=== PATIENT | male | born 1945 | race Caucasian/White ===

== ENCOUNTER 2023-05-21 05:25 | Inpatient (IN) | payer OTHER ==
[2023-05-15 15:00] LABS: BASOPHILS # (AUTO) 0.1 X10'3 (0-0.2); BASOPHILS % (AUTO) 0.7 % (0-1); EOSINOPHILS # (AUTO) 0.5 X10'3 (0-0.9); EOSINOPHILS % (AUTO) 4.3 % (0-6); HEMATOCRIT 45.9 % (42.0-52.0); HEMOGLOBIN 15.5 g/dl (14.0-17.9); LYMPHOCYTES # (AUTO) 4.1 X10'3 (1.1-4.8); LYMPHOCYTES % (AUTO) 37.4 % (21-51); MEAN CORPUSCULAR HEMOGLOBIN 31.1 PG (27.0-31.0); MEAN CORPUSCULAR HGB CONC 33.8 g/dL (33.0-36.5); MEAN CORPUSCULAR VOLUME 92.2 FL (78-98); MEAN PLATELET VOLUME 7.6 FL (7.4-10.4); MONOCYTES # (AUTO) 1.5 X10'3 (0-0.9); MONOCYTES % (AUTO) 13.9 % (2-12); NEUTROPHILS # (AUTO) 4.8 X10'3 (1.8-7.7); NEUTROPHILS % (AUTO) 43.7 % (42-75); PLATELET COUNT 306 X10'3 (140-440); RED BLOOD COUNT 4.98 X10'6 (4.70-6.10); RED CELL DISTRIBUTION WIDTH 14.5 % (11.5-14.5)
[2023-05-15 15:11] LABS: HEMOGLOBIN A1C 6.8 % (4.5-6.2)
[2023-05-15 15:16] LABS: ALANINE AMINOTRANSFERASE 35 U/L (12-78); ALBUMIN 3.9 G/DL (3.4-5.0); ALBUMIN/GLOBULIN RATIO 0.9 (1.1-1.5); ALKALINE PHOSPHATASE 67 IU/L (46-116); ANION GAP 10 (8-16); ASPARTATE AMINO TRANSFERASE 27 U/L (10-37); BILIRUBIN,TOTAL 0.6 MG/DL (0.1-1.0); BLOOD UREA NITROGEN 18 MG/DL (7-18); BUN/CREATININE RATIO 20.9 (10.0-20.0); CALCIUM 9.5 MG/DL (8.5-10.1); CHLORIDE 101 MMOL/L (99-107); CREATININE 0.86 MG/DL (0.60-1.10); GLUCOSE 126 MG/DL (70-104); POTASSIUM 3.9 MMOL/L (3.5-5.1); SODIUM 137 MMOL/L (135-145); TOTAL CARBON DIOXIDE 26.2 MMOL/L (24-32); TOTAL PROTEIN 8.1 G/DL (6.4-8.2); eGFR 86 ML/MIN
[~2023-05-21] VITALS: Ht 175.3 cm; Wt 122.7 kg
[2023-05-21] VITALS (23 sets, daily range): BP systolic 107–158; BP diastolic 64–95; PULSE 62–83; RESP 14–24; TEMP 97.3–98.5; O2SAT 92–99
[~2023-05-21 05:25] MED LIST: ALOG12.52 PO; ASPI-1265 PO; CARCD120C PO; CARV6.253 PO; CELE-193 PO; CHOL20002 PO; CYAN-104 PO; HYDR25TA5 PO; LOSA100T58 PO; METF-900 PO; OMEG-79 PO; OMEP-84 PO; ROSU40TA PO; VITC500T PO; ZINC220T3 PO
[2023-05-21] MEDS ORDERED: vancomycin 1,500 MG in NS 300ml IV soln IV ONE (05:30)
[2023-05-21] MEDS ORDERED: DOCUMENT DATE & TIME OF BETA-BLOCKER PO ONE (05:30)
[2023-05-21] MEDS ORDERED: tranexamic acid inj. 1,000 MG in normal saline IV soln 100ML IV ONE (05:30)
[2023-05-21] MEDS ORDERED: ceFAZolin inj. 3,000 MG in normal saline 100ml IV soln 100 ML IV ONE (05:30)
[2023-05-21] MEDS ORDERED: ringers solution, lacted 1,000 ML IV SCH ×2 (05:30→07:35)
[2023-05-21] MEDS ORDERED: famotidine 20mg tablet PO ONE (05:30)
[2023-05-21] MEDS ORDERED: epiNEPHrine 1 mg/ml inj ONE (06:59)
[2023-05-21] MEDS ORDERED: morphine 10mg/ml inj. ONE (06:59)
[2023-05-21] MEDS ORDERED: vancomycin 1,000mg inj ONE (06:59)
[2023-05-21] MEDS ORDERED: ROPIVAcaine 0.5% (5mg/ml) 30ml vial ONE ×4 (07:00→09:28)
[2023-05-21] MEDS ORDERED: MIDAZolam 1mg/ml 10ml vial ONE (07:21)
[2023-05-21] MEDS ORDERED: morphine 4 MG/ML inj SYRINge IV PRN (07:35)
[2023-05-21] MEDS ORDERED: ondansetron/PF 4mg/2ml inj IV PRN ×2 (07:35→11:10)
[2023-05-21] MEDS ORDERED: hydrALAZINE 20mg/ml inj. IV PRN (07:35)
[2023-05-21] MEDS ORDERED: labetalol 20mg/4ml (5mg/ml) syringe IV PRN (07:35)
[2023-05-21] MEDS ORDERED: morphine 2 MG/ML inj. syringe IV PRN (07:35)
[2023-05-21] MEDS ORDERED: ROPIVAcaine 0.2% (10 MG/5 ML) BOLUS INJECTION ADDCANAL PRN (07:35)
[2023-05-21] MEDS ORDERED: fentaNYL/PF 50MCG/1 ML 2ML syringe IV PRN ×2 (07:35)
[2023-05-21] MEDS ORDERED: dexmedetomidine 200mcg/2ml inj. IV ONE (07:40)
[2023-05-21] MEDS ORDERED: morphine 10mg/ml inj. IU ONE (09:00)
[2023-05-21] MEDS ORDERED: epiNEPHrine 1 mg/ml inj IU ONE (09:01)
[2023-05-21] MEDS ORDERED: ROPIVAcaine 0.5% (5mg/ml) 30ml vial IU ONE (09:07)
[2023-05-21] MEDS ORDERED: vancomycin 1,000mg inj IVT ONE (09:44)
[2023-05-21] MEDS ORDERED: diphenhydrAMINE 25mg capsule PO PRN ×2 (11:10)
[2023-05-21] MEDS ORDERED: acetaminophen 325mg tablet PO PRN (11:10)
[2023-05-21] MEDS ORDERED: bisacodyl 10mg suppository rectal RC PRN (11:10)
[2023-05-21] MEDS ORDERED: oxyCODONE IR 5mg (immed. release) tablet PO PRN (11:10)
[2023-05-21] MEDS ORDERED: naloxone 0.4 mg/ml inj IV PRN (11:10)
[2023-05-21] MEDS ORDERED: magnesium hydroxide 30ml (MOM) UD suspension PO PRN (11:10)
[2023-05-21] MEDS ORDERED: HYDROmorphone inj. 0.5 MG/0.5 ML DISP.SYRIN IV PRN (11:10)
[2023-05-21] MEDS: ROPIVAcaine 0.2%/PF PUMP/bolus 545 ML ADDCANAL SCH (11:38)
[2023-05-21] MEDS: potassium Cl 20mEq in NS 1,000 ML IV SCH ×2 (12:42→19:58)
[2023-05-21] MEDS: gabapentin 300mg capsule PO SCH ×2 (12:43→19:58)
[2023-05-21] MEDS ORDERED: NORMAL SALINE IV ONE (14:00)
[2023-05-21] MEDS ORDERED: acetaminophen 325mg tablet PO SCH (14:00)
[2023-05-21] MEDS ORDERED: TRANEXAMIC ACID IV ONE (14:00)
[2023-05-21] MEDS: oxyCODONE IR 5mg (immed. release) tablet PO PRN ×2 (16:00→19:53)
[2023-05-21] MEDS: HYDROmorphone 1 mg/ml syringe IV PRN ×2 (17:07→21:57)
[2023-05-21] MEDS: ceFAZolin/D5W- 1GM premix 50 ML IV SCH (19:17)
[2023-05-21] MEDS: metFORMIN 500mg tablet PO SCH (19:53)
[2023-05-21] MEDS: carvedilol 6.25mg tablet PO SCH (19:53)
[2023-05-21] MEDS: sennosides 8.6mg tablet PO SCH (19:58)
[2023-05-21] MEDS ORDERED: vancomycin/NS 1 GM ADD-VANTAGE 250 ML IV SCH (20:00)
[2023-05-22] MEDS: oxyCODONE IR 5mg (immed. release) tablet PO PRN ×4 (00:40→23:58)
[2023-05-22 02:00] VITALS: BP 184/91; PULSE 90; RESP 16; TEMP 98.7; O2SAT 95
[2023-05-22] MEDS: potassium Cl 20mEq in NS 1,000 ML IV SCH ×3 (03:10→19:29)
[2023-05-22] MEDS: ceFAZolin/D5W- 1GM premix 50 ML IV SCH (04:23)
[2023-05-22 06:00] VITALS: BP 151/74; PULSE 92; RESP 16; TEMP 98.6; O2SAT 95
[2023-05-22 07:10] LABS: BASOPHILS % (AUTO) 0.2 % (0-1); EOSINOPHILS # (AUTO) 0.1 X10'3 (0-0.9); EOSINOPHILS % (AUTO) 0.5 % (0-6); HEMATOCRIT 40.8 % (42.0-52.0); HEMOGLOBIN 13.6 g/dl (14.0-17.9); LYMPHOCYTES # (AUTO) 1.9 X10'3 (1.1-4.8); LYMPHOCYTES % (AUTO) 16.3 % (21-51); MEAN CORPUSCULAR HEMOGLOBIN 30.6 PG (27.0-31.0); MEAN CORPUSCULAR HGB CONC 33.3 g/dL (33.0-36.5); MEAN PLATELET VOLUME 7.5 FL (7.4-10.4); MONOCYTES # (AUTO) 1.9 X10'3 (0-0.9); MONOCYTES % (AUTO) 16.1 % (2-12); NEUTROPHILS % (AUTO) 66.9 % (42-75); PLATELET COUNT 267 X10'3 (140-440); RED BLOOD COUNT 4.43 X10'6 (4.70-6.10); RED CELL DISTRIBUTION WIDTH 14.1 % (11.5-14.5)
[2023-05-22 07:21] LABS: ANION GAP 10 (8-16); CHLORIDE 100 MMOL/L (99-107); SODIUM 136 MMOL/L (135-145); TOTAL CARBON DIOXIDE 26.4 MMOL/L (24-32)
[2023-05-22] MEDS: celeCOXIB 100mg capsule PO SCH (08:18)
[2023-05-22] MEDS: metFORMIN 500mg tablet PO SCH ×2 (08:18→20:11)
[2023-05-22] MEDS: gabapentin 300mg capsule PO SCH ×3 (08:20→20:12)
[2023-05-22] MEDS: HYDROchlorothiazide 25mg tablet PO SCH (08:20)
[2023-05-22] MEDS: linagliptin 5mg tablet PO SCH (08:20)
[2023-05-22] MEDS: cyanocobalamin 500mcg tablet PO SCH (08:21)
[2023-05-22] MEDS: pantoprazole 40mg Tablet.DR PO SCH (08:22)
[2023-05-22] MEDS: losartan 50mg tablet PO SCH (08:22)
[2023-05-22] MEDS: carvedilol 6.25mg tablet PO SCH ×2 (08:22→20:11)
[2023-05-22] MEDS: diltiazem CD 120mg capsule (once-daily) PO SCH (08:22)
[2023-05-22] MEDS: enoxaparin 40mg/0.4ml syringe SQ SCH (08:23)
[2023-05-22 08:35] LABS: TOTAL CELLS COUNTED 100
[2023-05-22 08:36] LABS: PLATELET ESTIMATE NORMAL
[2023-05-22 10:00] VITALS: BP 165/76; PULSE 93; RESP 20; TEMP 97.5; O2SAT 92
[2023-05-22] MEDS: HYDROmorphone 1 mg/ml syringe IV PRN ×2 (13:50→19:29)
[2023-05-22 18:00] VITALS: BP 135/78; PULSE 97; RESP 18; TEMP 97.5; O2SAT 93
[2023-05-22] MEDS ORDERED: enoxaparin 60mg/0.6ml syringe SUBCUT ONE ×2 (18:10→18:35)
[2023-05-22 20:00] VITALS: RESP 17; O2SAT 94
[2023-05-22] MEDS ORDERED: enoxaparin 40mg/0.4ml syringe SUBCUT SCH (20:00)
[2023-05-22] MEDS ORDERED: celeCOXIB 100mg capsule PO SCH (20:00)
[2023-05-22] MEDS ORDERED: enoxaparin 30mg/0.3ml syringe SUBCUT SCH (20:00)
[2023-05-22] MEDS: sennosides 8.6mg tablet PO SCH (20:12)
[2023-05-22 22:00] VITALS: BP 169/78; PULSE 95; RESP 17; TEMP 98; O2SAT 94
[2023-05-23] MEDS: potassium Cl 20mEq in NS 1,000 ML IV SCH (03:10)
[2023-05-23 06:00] VITALS: BP 125/57; PULSE 75; RESP 16; TEMP 97.8; O2SAT 94
[2023-05-23] MEDS: diltiazem CD 120mg capsule (once-daily) PO SCH (07:31)
[2023-05-23] MEDS: linagliptin 5mg tablet PO SCH (07:31)
[2023-05-23] MEDS: celeCOXIB 100mg capsule PO SCH (07:32)
[2023-05-23] MEDS: gabapentin 300mg capsule PO SCH ×3 (07:32→20:45)
[2023-05-23] MEDS: pantoprazole 40mg Tablet.DR PO SCH (07:32)
[2023-05-23] MEDS: HYDROchlorothiazide 25mg tablet PO SCH (07:32)
[2023-05-23] MEDS: cyanocobalamin 500mcg tablet PO SCH (07:32)
[2023-05-23] MEDS: metFORMIN 500mg tablet PO SCH ×2 (07:32→20:45)
[2023-05-23] MEDS: carvedilol 6.25mg tablet PO SCH ×2 (07:33→20:45)
[2023-05-23] MEDS: losartan 50mg tablet PO SCH (07:33)
[2023-05-23 07:57] LABS: BASOPHILS # (AUTO) 0.1 X10'3 (0-0.2); BASOPHILS % (AUTO) 0.6 % (0-1); EOSINOPHILS # (AUTO) 0.4 X10'3 (0-0.9); EOSINOPHILS % (AUTO) 2.4 % (0-6); HEMATOCRIT 35.8 % (42.0-52.0); HEMOGLOBIN 12.1 g/dl (14.0-17.9); LYMPHOCYTES # (AUTO) 2.9 X10'3 (1.1-4.8); LYMPHOCYTES % (AUTO) 19.9 % (21-51); MEAN CORPUSCULAR HEMOGLOBIN 31.3 PG (27.0-31.0); MEAN CORPUSCULAR HGB CONC 33.9 g/dL (33.0-36.5); MEAN CORPUSCULAR VOLUME 92.3 FL (78-98); MEAN PLATELET VOLUME 7.6 FL (7.4-10.4); MONOCYTES # (AUTO) 2.3 X10'3 (0-0.9); MONOCYTES % (AUTO) 15.8 % (2-12); NEUTROPHILS # (AUTO) 8.9 X10'3 (1.8-7.7); NEUTROPHILS % (AUTO) 61.3 % (42-75); PLATELET COUNT 245 X10'3 (140-440); RED BLOOD COUNT 3.87 X10'6 (4.70-6.10); RED CELL DISTRIBUTION WIDTH 14.4 % (11.5-14.5); WHITE BLOOD COUNT 14.5 X10'3 (4.5-11.0)
[2023-05-23 08:00] VITALS: RESP 16; O2SAT 94
[2023-05-23 08:40] LABS: PLATELET ESTIMATE NORMAL; TOTAL CELLS COUNTED 100
[2023-05-23 10:00] VITALS: BP 110/47; PULSE 70; RESP 18; TEMP 98.5; O2SAT 92
[2023-05-23] MEDS: oxyCODONE IR 5mg (immed. release) tablet PO PRN ×3 (10:20→23:27)
[2023-05-23] MEDS ORDERED: acetaminophen 325mg tablet PO PRN (11:10)
[2023-05-23] MEDS: ROPIVAcaine 0.2%/PF PUMP/bolus 545 ML ADDCANAL SCH (13:23)
[2023-05-23 18:00] VITALS: BP 140/53; PULSE 85; RESP 22; TEMP 99.3; O2SAT 94
[2023-05-23 20:00] VITALS: RESP 16; O2SAT 94
[2023-05-23] MEDS: sennosides 8.6mg tablet PO SCH (20:45)
[2023-05-23 22:00] VITALS: BP 137/60; PULSE 82; RESP 16; TEMP 98.9; O2SAT 94
[2023-05-24] MEDS: oxyCODONE IR 5mg (immed. release) tablet PO PRN ×4 (05:46→21:02)
[2023-05-24 06:00] VITALS: BP 124/68; PULSE 77; RESP 16; TEMP 98.1; O2SAT 100
[2023-05-24 06:21] LABS: BASOPHILS # (AUTO) 0.1 X10'3 (0-0.2); BASOPHILS % (AUTO) 0.6 % (0-1); EOSINOPHILS # (AUTO) 0.5 X10'3 (0-0.9); EOSINOPHILS % (AUTO) 4.5 % (0-6); HEMATOCRIT 32.5 % (42.0-52.0); HEMOGLOBIN 10.9 g/dl (14.0-17.9); LYMPHOCYTES # (AUTO) 2.9 X10'3 (1.1-4.8); LYMPHOCYTES % (AUTO) 24.5 % (21-51); MEAN CORPUSCULAR HGB CONC 33.6 g/dL (33.0-36.5); MEAN CORPUSCULAR VOLUME 92.4 FL (78-98); MEAN PLATELET VOLUME 7.7 FL (7.4-10.4); MONOCYTES # (AUTO) 1.8 X10'3 (0-0.9); MONOCYTES % (AUTO) 14.9 % (2-12); NEUTROPHILS # (AUTO) 6.7 X10'3 (1.8-7.7); NEUTROPHILS % (AUTO) 55.5 % (42-75); PLATELET COUNT 236 X10'3 (140-440); RED BLOOD COUNT 3.52 X10'6 (4.70-6.10); RED CELL DISTRIBUTION WIDTH 14.1 % (11.5-14.5)
[2023-05-24] MEDS: linagliptin 5mg tablet PO SCH (07:33)
[2023-05-24] MEDS: diltiazem CD 120mg capsule (once-daily) PO SCH (07:33)
[2023-05-24] MEDS: cyanocobalamin 500mcg tablet PO SCH (07:33)
[2023-05-24] MEDS: metFORMIN 500mg tablet PO SCH ×2 (07:33→20:50)
[2023-05-24] MEDS: celeCOXIB 100mg capsule PO SCH (07:33)
[2023-05-24] MEDS: gabapentin 300mg capsule PO SCH ×3 (07:33→20:51)
[2023-05-24] MEDS: carvedilol 6.25mg tablet PO SCH ×2 (07:33→20:50)
[2023-05-24] MEDS: HYDROchlorothiazide 25mg tablet PO SCH (07:33)
[2023-05-24] MEDS: pantoprazole 40mg Tablet.DR PO SCH (07:33)
[2023-05-24] MEDS: losartan 50mg tablet PO SCH (07:35)
[2023-05-24 08:00] VITALS: RESP 16; O2SAT 94
[2023-05-24 18:00] VITALS: BP 144/78; PULSE 75; RESP 18; TEMP 97.4; O2SAT 94
[2023-05-24 19:00] VITALS: RESP 18; O2SAT 94
[2023-05-24] MEDS: sennosides 8.6mg tablet PO SCH (20:50)
[2023-05-24 22:00] VITALS: BP 145/75; PULSE 73; RESP 16; TEMP 97.5; O2SAT 97
[2023-05-25] MEDS: oxyCODONE IR 5mg (immed. release) tablet PO PRN ×3 (04:43→20:48)
[2023-05-25 06:30] VITALS: BP 132/70; PULSE 69; RESP 18; TEMP 98.2; O2SAT 93
[2023-05-25] MEDS: HYDROchlorothiazide 25mg tablet PO SCH (07:57)
[2023-05-25] MEDS: losartan 50mg tablet PO SCH (07:59)
[2023-05-25] MEDS: gabapentin 300mg capsule PO SCH ×3 (07:59→20:46)
[2023-05-25 08:00] VITALS: RESP 16
[2023-05-25] MEDS: pantoprazole 40mg Tablet.DR PO SCH (08:00)
[2023-05-25] MEDS: carvedilol 6.25mg tablet PO SCH ×2 (08:00→19:30)
[2023-05-25] MEDS: celeCOXIB 100mg capsule PO SCH (08:00)
[2023-05-25] MEDS: diltiazem CD 120mg capsule (once-daily) PO SCH (08:00)
[2023-05-25] MEDS: cyanocobalamin 500mcg tablet PO SCH (08:01)
[2023-05-25] MEDS: linagliptin 5mg tablet PO SCH (08:02)
[2023-05-25] MEDS: metFORMIN 500mg tablet PO SCH ×2 (08:02→19:29)
[2023-05-25] MEDS: enoxaparin 40mg/0.4ml syringe SQ SCH (08:12)
[2023-05-25 10:12] VITALS: BP 129/67; PULSE 70; RESP 16; TEMP 98.7; O2SAT 94
[2023-05-25 18:00] VITALS: BP 145/70; PULSE 75; RESP 16; TEMP 98; O2SAT 94
[2023-05-25] MEDS ORDERED: magnesium hydroxide 30ml (MOM) UD suspension PO PRN (18:25)
[2023-05-25] MEDS: sennosides 8.6mg tablet PO SCH (19:29)
[2023-05-25] MEDS: ROPIVAcaine 0.2%/PF PUMP/bolus 545 ML ADDCANAL SCH (19:33)
[2023-05-25] MEDS: cephalexin 500mg capsule PO SCH (19:43)
[2023-05-25 22:00] VITALS: BP 126/68; PULSE 74; RESP 16; TEMP 97.5; O2SAT 97
[2023-05-26] MEDS: cephalexin 500mg capsule PO SCH ×4 (01:38→20:32)
[2023-05-26] MEDS: oxyCODONE IR 5mg (immed. release) tablet PO PRN (05:58)
[2023-05-26 06:00] VITALS: BP 140/79; PULSE 65; RESP 18; TEMP 97.8; O2SAT 96
[2023-05-26] MEDS: diltiazem CD 120mg capsule (once-daily) PO SCH (08:42)
[2023-05-26] MEDS: celeCOXIB 100mg capsule PO SCH (08:42)
[2023-05-26] MEDS: carvedilol 6.25mg tablet PO SCH ×2 (08:43→20:31)
[2023-05-26] MEDS: metFORMIN 500mg tablet PO SCH ×2 (08:44→20:31)
[2023-05-26] MEDS: losartan 50mg tablet PO SCH (08:44)
[2023-05-26] MEDS: linagliptin 5mg tablet PO SCH (08:45)
[2023-05-26] MEDS: gabapentin 300mg capsule PO SCH ×3 (08:45→20:32)
[2023-05-26] MEDS: cyanocobalamin 500mcg tablet PO SCH (08:45)
[2023-05-26] MEDS: pantoprazole 40mg Tablet.DR PO SCH (08:45)
[2023-05-26] MEDS: HYDROchlorothiazide 25mg tablet PO SCH (08:45)
[2023-05-26] MEDS: enoxaparin 40mg/0.4ml syringe SQ SCH (08:46)
[2023-05-26 10:00] VITALS: BP 143/91; PULSE 76; RESP 16; TEMP 97.6; O2SAT 97
[2023-05-26 18:00] VITALS: BP 143/69; PULSE 70; RESP 20; TEMP 98.4; O2SAT 96
[2023-05-26] MEDS: sennosides 8.6mg tablet PO SCH (20:32)
[2023-05-26 22:00] VITALS: BP 161/77; PULSE 79; RESP 21; TEMP 97.7; O2SAT 96
[2023-05-27] MEDS: cephalexin 500mg capsule PO SCH ×2 (02:28→08:18)
[2023-05-27] MEDS: oxyCODONE IR 5mg (immed. release) tablet PO PRN (05:48)
[2023-05-27 06:00] VITALS: BP 152/82; PULSE 71; RESP 22; TEMP 97.6; O2SAT 96
[2023-05-27 07:50] VITALS: RESP 18
[2023-05-27] MEDS: celeCOXIB 100mg capsule PO SCH (08:16)
[2023-05-27] MEDS: linagliptin 5mg tablet PO SCH (08:17)
[2023-05-27] MEDS: cyanocobalamin 500mcg tablet PO SCH (08:17)
[2023-05-27] MEDS: metFORMIN 500mg tablet PO SCH (08:18)
[2023-05-27] MEDS: HYDROchlorothiazide 25mg tablet PO SCH (08:18)
[2023-05-27] MEDS: pantoprazole 40mg Tablet.DR PO SCH (08:18)
[2023-05-27] MEDS: gabapentin 300mg capsule PO SCH (08:19)
[2023-05-27] MEDS: losartan 50mg tablet PO SCH (08:21)
[2023-05-27] MEDS: diltiazem CD 120mg capsule (once-daily) PO SCH (08:21)
[2023-05-27] MEDS: enoxaparin 40mg/0.4ml syringe SQ SCH (08:24)
[2023-05-27 10:00] VITALS: BP_SYST 138; BP_SYST 145; BP_DIAS 80; BP_DIAS 83; PULSE 76; PULSE 78; RESP 18; RESP 20; TEMP 97.4; TEMP 98.1; O2SAT 93; O2SAT 95
[2023-05-27] MEDS: carvedilol 6.25mg tablet PO SCH (10:45)
== END 2023-05-27 11:23 | disposition home or self-care (01) | DRG 470 ==
LOC: UNDOADMIN 05:25 → PAS IN 05:25 → ORTHO 4S 15:07
PROVIDERS: ADMIT Orthopaedic Surgery; ATTEND Orthopaedic Surgery
PROC: 3E0T3BZ Introduction of Anesthetic Agent into Peripheral Nerves and Plexi, Percutaneous Approach (ICD-10-PCS; 2023-05-21)
PROC: 0SRC0J9 Replacement of Right Knee Joint with Synthetic Substitute, Cemented, Open Approach (ICD-10-PCS; principal; 2023-05-21 07:40)
DX: M17.11 Unilateral primary osteoarthritis, right knee (principal); D68.32 Hemorrhagic disorder due to extrinsic circulating anticoagulants; D62 Acute posthemorrhagic anemia; E66.9 Obesity, unspecified; Z68.39 Body mass index [BMI] 39.0-39.9, adult; T45.515A Adverse effect of anticoagulants, initial encounter; Y83.1 Surgical operation with implant of artificial internal device as the cause of abnormal reaction of the patient, or of later complication, without mention of misadventure at the time of the procedure; Y92.238 Other place in hospital as the place of occurrence of the external cause
CPT/HCPCS: 36415; 73560; 80051; 80053; 82948; 83036; 85007; 85025; 87081; 97110; 97116; 97161; 97530; 97535; A4215; A6212; A6253; A6258; A6446; A6449; A7000; C1713; C1758; C1776; C9250; G0378; J0171; J0690; J1170; J1650; J2250; J2270; J2274; J2795; J3370; J3480; J3490; J7120